=== PATIENT | male | born 1990 | race Caucasian/White ===

== ENCOUNTER 2022-09-01 20:29 | Emergency (ER) | payer BC ==
[~2022-09-01] VITALS: Ht 167.6 cm; Wt 83.9 kg
[2022-09-01 20:37] VITALS: BP 131/77
--- NOTE | 2022-09-01 21:35 | NUR ---
PT. T O BED 7 W/ FAMILY.
--- NOTE | 2022-09-01 21:45 | NUR ---
31 Y/O M BIB FRIEND C/C OF HEAD PAIN DUE TO A LACERATION ON THE BACK OF HIS HEAD THROBBING 10/10 PAIN. PT IS AMBULATORY, ALERT AND AWAKE, DENIES ANY NVD, HEADACHES. PT STATED HE WAS DRINKING AND PLAYING AND FELL. PT STATED HE DOESNT REMEMBER HOW HE FELL OR WHAT HE WAS DOING WHEN THE FALL OCCURRED. PT IS A&OX3, AND STATES FELING CONFUSED AT TIMES. PMH-PT DENIES NKA
--- NOTE | 2022-09-01 22:17 | NUR ---
Patient being evaluated by physician at bedside.
[2022-09-01] MEDS ORDERED: BACITRACIN OINT 500 UNITS/GM PKT TP ONE (22:35)
[2022-09-01] MEDS ORDERED: LIDOCAINE/EPI 2% 1:100000 20 ML VIAL INJ ONE (22:35)
--- NOTE | 2022-09-01 22:45 | NUR ---
PT TAKEN TO CT VIA WHEELCHAIR
--- NOTE | 2022-09-01 22:57 | NUR ---
PT RETURNED FROM CT
[2022-09-01] MEDS ORDERED: BACI-416 TP (23:26)
--- NOTE | 2022-09-02 00:16 | NUR ---
Patient discharged with v/s stable. Written and verbal after care instructions given and explained. Patient alert, oriented and verbalized understanding of instructions. Ambulatory with steady gait. All questions addressed prior to discharge. ID band removed. Patient advised to follow up with PMD. Rx of BACITRACIN given. Opportunity to ask questions provided and answered.
== END 2022-09-02 00:16 | disposition home or self-care (01) ==
LOC: MED 20:29
DX: S01.01XA Laceration without foreign body of scalp, initial encounter (principal); F10.129 Alcohol abuse with intoxication, unspecified; Z79.899 Other long term (current) drug therapy; Z98.890 Other specified postprocedural states; W19.XXXA Unspecified fall, initial encounter; Y93.89 Activity, other specified; Y92.89 Other specified places as the place of occurrence of the external cause; Y99.8 Other external cause status
CPT/HCPCS: 12002; 70450; 72125; 99284; J2001